=== PATIENT | male | born 1940 | race Caucasian/White ===

== ENCOUNTER 2017-02-21 10:01 | Inpatient (IN) | payer MEDICARE, MEDICAID ==
[~2017-02-21] VITALS: Ht 177.8 cm; Wt 67.4 kg
[2017-02-21] MEDS ORDERED: SODIUM CHLORIDE 0.9% 1,000 ML IV ONE (10:26)
[2017-02-21 11:01] LABS: BASOPHILS % 0.8 % (0.0-2.0); EOSINOPHILS % 4.1 % (0.0-5.0); HEMOGLOBIN. 15.4 g/dL (14.0-18.0); LYMPHOCYTES % 17.9 % (20.0-50.0); MEAN CORPUSCULAR HEMOGLOBIN 26.8 pg (28.0-32.0); MEAN CORPUSCULAR HGB CONC 32.9 g/dL (31.0-37.0); MEAN CORPUSCULAR VOLUME 81.4 fL (80.0-94.0); MEAN PLATELET VOLUME 10.6 fl (7.4-10.4); MONOCYTES % 11.4 % (2.0-8.0); NEUTROPHILS % 65.8 % (40.0-76.0); PLATELET 160 x1000/uL (130-400); RED BLOOD CELL COUNT 5.77 mill/uL (4.7-6.1); RED CELL DISTRIBUTION WIDTH 17.2 % (11.6-14.6); WHITE BLOOD COUNT 3.9 x1000/uL (4.5-11.0)
[2017-02-21 11:07] LABS: CHLORIDE 109 mEq/L (98-107); INDEX HEMOLYSI 1 (1-3); INDEX ICTERIC 1 (1-4); INDEX LIPEMIC 1 (1-3)
[2017-02-21 11:18] LABS: ALANINE AMINOTRANSFERASE 34 IU/L (13-61); ALBUMIN 3.6 g/dL (3.4-5.0); ANION GAP 13; CALCIUM 8.9 mg/dL (8.5-10.1); CARBON DIOXIDE 26 mEq/L (21-32); NT PRO B-TYPE NATRIURETIC PEP 9309 pg/mL (5-125); TROPONIN I 0.31 ng/mL (0.00-0.04); UREA NITROGEN BLOOD 19 mg/dL (7-21); eGFR 59 mL/min (>60)
[2017-02-21] MEDS ORDERED: ASPIRIN 325MG TABLET PO ONE (11:45)
[2017-02-21 13:30] VITALS: BP 146/101
[2017-02-21 13:40] VITALS: BP 146/101
[2017-02-21] MEDS ORDERED: ONDANSETRON HCL 4MG/2ML VIAL IV PRN (14:15)
[2017-02-21] MEDS ORDERED: MAGNESIUM/ALUMINUM HYDROXIDE/SIMETHICONE 30ML UDC PO PRN (14:15)
[2017-02-21] MEDS ORDERED: ACETAMINOPHEN 325MG TABLET PO PRN (14:15)
[2017-02-21] MEDS ORDERED: PROMETHAZINE/DEXTROMETHORPHAN 6.25-15MG/5ML BOTTLE 120ML PO PRN (14:15)
[2017-02-21] MEDS ORDERED: IPRATROPIUM/ALBUTEROL 0.5-3(2.5)MG/3ML NEB INH PRN (14:15)
[2017-02-21] MEDS: IPRATROPIUM/ALBUTEROL 0.5-3(2.5)MG/3ML NEB HHN SCH ×2 (16:44→20:18)
[2017-02-21 20:00] VITALS: BP 113/77
[2017-02-21 20:16] LABS: THYROID STIMULATING HORMONE 1.8 uIU/mL (0.36-3.74)
[2017-02-21] MEDS: SODIUM CHLORIDE 0.9% INJ 3ML FLUSH IVF SCH (22:09)
[2017-02-22] VITALS (11 sets, daily range): BP systolic 110–159; BP diastolic 44–103
[2017-02-22] MEDS: IPRATROPIUM/ALBUTEROL 0.5-3(2.5)MG/3ML NEB HHN SCH ×7 (00:54→22:18)
[2017-02-22] MEDS: SODIUM CHLORIDE 0.9% INJ 3ML FLUSH IVF SCH (05:41)
[2017-02-22 08:42] LABS: TROPONIN I 0.27 ng/mL (0.00-0.04)
[2017-02-22] MEDS ORDERED: REGADENOSON 0.4 MG/5 ML IV NR ×2 (12:45→22:15)
[2017-02-22] MEDS ORDERED: SODIUM CHLORIDE 0.9% 10ML VIAL ONE (14:09)
[2017-02-22] MEDS ORDERED: IOHEXOL-350 100 ML BOTTLE ONE (14:09)
[2017-02-22] MEDS: CLONIDINE 0.1MG TABLET PO PRN (20:34)
[2017-02-22] MEDS ORDERED: ENOXAPARIN 80MG/0.8ML SYR SUBCUT SCH (22:30)
[2017-02-22] MEDS: CARVEDILOL 3.125 MG TABLET PO SCH (22:51)
[2017-02-23] VITALS (10 sets, daily range): BP systolic 91–139; BP diastolic 59–95
[2017-02-23] MEDS: CLONIDINE 0.1MG TABLET PO PRN (06:08)
[2017-02-23] MEDS ORDERED: REGADENOSON 0.4 MG/5 ML IV NR (07:00)
[2017-02-23 07:21] LABS: ANION GAP 14; CALCIUM 8.7 mg/dL (8.5-10.1); CARBON DIOXIDE 27 mEq/L (21-32); CHLORIDE 107 mEq/L (98-107); INDEX HEMOLYSI 1 (1-3); INDEX ICTERIC 1 (1-4); INDEX LIPEMIC 1 (1-3); UREA NITROGEN BLOOD 16 mg/dL (7-21); eGFR > 60 mL/min (>60)
[2017-02-23] MEDS: IPRATROPIUM/ALBUTEROL 0.5-3(2.5)MG/3ML NEB HHN SCH ×3 (08:10→15:30)
[2017-02-23] MEDS ORDERED: REGADENOSON 0.4 MG/5 ML IV ONE (08:30)
[2017-02-23] MEDS ORDERED: LISINOPRIL 2.5MG TABLET PO SCH (09:00)
[2017-02-23] MEDS ORDERED: FOSINOPRIL PO SCH (09:00)
[2017-02-23] MEDS: CARVEDILOL 3.125 MG TABLET PO SCH (09:51)
[2017-02-23] MEDS ORDERED: FUROSEMIDE 20MG/2ML VIAL IVP NR (12:00)
[2017-02-23] MEDS: SODIUM CHLORIDE 0.9% INJ 3ML FLUSH IVF SCH (13:07)
== END 2017-02-23 16:12 | disposition home or self-care (01) | DRG 291 ==
LOC: ER 10:40 → 7WST 11:56 → 3WST 02-22 08:59
PROVIDERS: ADMIT Internal Medicine; ATTEND Internal Medicine
DX: I50.41 Acute combined systolic (congestive) and diastolic (congestive) heart failure (principal); J96.00 Acute respiratory failure, unspecified whether with hypoxia or hypercapnia; I42.9 Cardiomyopathy, unspecified; D72.810 Lymphocytopenia; D72.819 Decreased white blood cell count, unspecified; Z80.0 Family history of malignant neoplasm of digestive organs; Z87.01 Personal history of pneumonia (recurrent)
CPT/HCPCS: 36415; 71020; 71275; 78452; 80048; 80053; 80061; 83036; 83605; 83735; 83880; 84443; 84484; 85025; 85379; 93005; 93017; 93306; 93970; 94640; 96360; 99285; A4216; A9500; J1650; J1940; J2785; J7030; J7620; Q9967